=== PATIENT | female | born 1995 | race Caucasian/White ===

== ENCOUNTER 2020-03-31 01:24 | Emergency (ER) | payer OTHER, MEDICAID ==
[~2020-03-31] VITALS: Ht 162.6 cm; Wt 70.7 kg
--- NOTE | 2020-03-31 01:35 | NUR ---
PT REPORTS MIGRAINE ARGUETA X2 WEEKS, SEEN AT URGENT 1 WEEK AGO TREATED FOR ALLERGIES. PT REPORTS CLARITIN HAS NOT HELPED. PT REPORTS SHE "PASSED OUT" IN THE BATHROOM LAST NIGHT.
[2020-03-31] MEDS ORDERED: ONDANSETRON ODT 4 MG ONE (01:51)
[2020-03-31] MEDS ORDERED: KETOROLAC 30 MG/1 ML ONE (01:52)
[2020-03-31] MEDS ORDERED: DIPHENHYDRAMINE 25 MG CAPSULE ONE (01:52)
[2020-03-31] MEDS ORDERED: ONDANSETRON ODT 4 MG PO ONE (02:00)
[2020-03-31] MEDS ORDERED: KETOROLAC 30 MG/1 ML IM ONE (02:00)
[2020-03-31] MEDS ORDERED: DIPHENHYDRAMINE 25 MG CAPSULE PO ONE (02:00)
--- NOTE | 2020-03-31 02:00 | NUR ---
GARAGE HAND AT BEDSIDE.
[2020-03-31 02:14] LABS: BASOPHILS # (AUTO) 0.04 x10^3/uL (0-0.1); BASOPHILS % (AUTO) 1 % (0-1); EOSINOPHILS # (AUTO) 0.07 x10^3/uL (0-0.4); EOSINOPHILS % (AUTO) 1 % (1-7); LYMPHOCYTES # (AUTO) 2.88 x10^3/uL (1-3.4); LYMPHOCYTES % (AUTO) 38 % (22-44); MD NO; MEAN CORPUSCULAR HEMOGLOBIN 30.8 pg (27.0-34.8); MEAN CORPUSCULAR HGB CONC 32.4 g/dL (32.4-35.8); MEAN CORPUSCULAR VOLUME 95.2 fL (80-100); MEAN PLATELET VOLUME 7.8 fL (7.4-10.4); MONOCYTES # (AUTO) 0.37 x10^3/uL (0.2-0.8); MONOCYTES % (AUTO) 5 % (2-9); NEUTROPHILS # (AUTO) 4.29 x10^3/uL (1.8-6.8); NEUTROPHILS % (AUTO) 56 % (42-75); PLATELET COUNT 254 x10^3/uL (130-400); RED BLOOD COUNT 4.14 x10^6/uL (3.82-5.3); RED CELL DISTRIBUTION WIDTH 12.9 % (9.6-15.2)
[2020-03-31 02:21] LABS: ALBUMIN 3.7 g/dL (3.4-5.0); ANION GAP 7 mmol/L (5-15); CALCIUM 8.6 mg/dL (8.5-10.1); CHLORIDE 107 mmol/L (98-107)
--- NOTE | 2020-03-31 02:43 | NUR ---
PT REPORTS ARGUETA IS 05/06.
[2020-03-31 02:44] VITALS: BP 100/68
== END 2020-03-31 03:20 | disposition home or self-care (01) ==
LOC: ED 01:52
DX: R51 Headache (principal); J45.909 Unspecified asthma, uncomplicated; R00.0 Tachycardia, unspecified
CPT/HCPCS: 36415; 80048; 82040; 84703; 85025; 93005; 96372; 99284; J1885; Q0162; Q0163

== ENCOUNTER 2020-04-25 00:09 | Emergency (ER) | payer OTHER, MEDICAID ==
[~2020-04-25] VITALS: Ht 162.6 cm; Wt 70.5 kg
--- NOTE | 2020-04-25 00:18 | NUR ---
THIS TECH DID EKG
[2020-04-25] MEDS ORDERED: SODIUM CHLORIDE 0.9% 1,000ML IVBOLUS ONE (00:30)
[2020-04-25] MEDS ORDERED: SODIUM CHLORIDE FLUSH 10ML SYR IVF ONE (00:30)
[2020-04-25 00:42] LABS: BASOPHILS # (AUTO) 0.04 x10^3/uL (0-0.1); BASOPHILS % (AUTO) 0 % (0-1); EOSINOPHILS # (AUTO) 0.16 x10^3/uL (0-0.4); EOSINOPHILS % (AUTO) 1 % (1-7); LYMPHOCYTES # (AUTO) 2.34 x10^3/uL (1-3.4); LYMPHOCYTES % (AUTO) 15 % (22-44); MD NO; MEAN CORPUSCULAR HEMOGLOBIN 31.7 pg (27.0-34.8); MEAN CORPUSCULAR HGB CONC 32.9 g/dL (32.4-35.8); MEAN CORPUSCULAR VOLUME 96.4 fL (80-100); MEAN PLATELET VOLUME 7.7 fL (7.4-10.4); MONOCYTES # (AUTO) 0.68 x10^3/uL (0.2-0.8); MONOCYTES % (AUTO) 4 % (2-9); NEUTROPHILS % (AUTO) 79 % (42-75); PLATELET COUNT 352 x10^3/uL (130-400)
--- NOTE | 2020-04-25 00:43 | NUR ---
PT TO CT
[2020-04-25] MEDS ORDERED: ONDANSETRON 2MG/ML, 2ML ONE ×2 (00:53→01:33)
[2020-04-25 00:58] LABS: ALANINE AMINOTRANSFERASE 271 U/L (12-78); ANION GAP 11 mmol/L (5-15); CALCIUM 8.3 mg/dL (8.5-10.1); CHLORIDE 107 mmol/L (98-107); CREATININE 1.11 mg/dL (0.55-1.02)
[2020-04-25] MEDS ORDERED: ONDANSETRON 2MG/ML, 2ML IVPush ONE ×2 (01:00→01:30)
[2020-04-25 01:03] LABS: ALKALINE PHOSPHATASE 87 U/L (45-117); BILIRUBIN,TOTAL 0.4 mg/dL (0.2-1.0); TOTAL PROTEIN 7.7 g/dL (6.4-8.2)
--- NOTE | 2020-04-25 01:37 | NUR ---
Christian RN: Assisted pt to bedside commode and UA obtained and sent. Pt became very nauseous after transfering back to [facility]. Order for repeat Zofran received and pt medicated per MAR. Pt and aware of POC--awaiting CTA. Report to zulma Dye RN.
--- NOTE | 2020-04-25 01:39 | NUR ---
PT TO CT.
[2020-04-25 01:48] LABS: MICROSCOPIC INDICATED
[2020-04-25 01:52] LABS: AMPHETAMINE SCREEN, URINE Negative (Negative); BARBITURATE SCREEN, URINE Negative (Negative); BENZODIAZEPINE SCREEN, URINE Negative (Negative); CANNABINOID SCREEN, URINE Negative (Negative); COCAINE SCREEN, URINE Negative (Negative); METHADONE SCREEN, URINE Negative (Negative); OPIATE SCREEN, URINE Negative (Negative)
[2020-04-25] MEDS ORDERED: PLEASE ENTER HEIGHT AND WEIGHT MC SCH (02:00)
--- NOTE | 2020-04-25 02:22 | NUR ---
PT RESTING WITH AT BEDSIDE. HR NOW 80S. DRINKING WATER WITHOUT DIFFICULTY.
--- NOTE | 2020-04-25 02:23 | NUR ---
PROVIDER TO BEDSIDE TO DISCUSS PLAN OF CARE.
[2020-04-25] MEDS ORDERED: PROMETHAZINE 25 MG/ML, 1ML ONE (02:29)
[2020-04-25] MEDS ORDERED: PROMETHAZINE 25 MG/ML, 1ML IM ONE (02:30)
[2020-04-25 03:33] VITALS: BP 99/66
[2020-04-25] MEDS ORDERED: OMNIPAQUE 350 MG/ML, 100ML BOTTLE ONE (06:49)
== END 2020-04-25 03:35 | disposition home or self-care (01) ==
LOC: ED 02:30
DX: R56.9 Unspecified convulsions (principal); R51 Headache; R07.9 Chest pain, unspecified; R94.31 Abnormal electrocardiogram [ECG] [EKG]; F17.200 Nicotine dependence, unspecified, uncomplicated
CPT/HCPCS: 36415; 70450; 71045; 71275; 80053; 80307; 81001; 84703; 85025; 85379; 87086; 93005; 96361; 96372; 96374; 96376; 99285; J2405; J2550; J7030; Q9967

== ENCOUNTER 2020-04-25 21:42 | Emergency (ER) | payer OTHER, MEDICAID ==
[~2020-04-25] VITALS: Ht 162.6 cm; Wt 72.3 kg
--- NOTE | 2020-04-25 21:53 | NUR ---
BS 102 IN [facility].
--- NOTE | 2020-04-25 22:04 | NUR ---
PT REPORTS ARGUETA SINCE THIS MORNING AND NAUSEA. PT WAS HERE YESTERDAY FOR POSSIBLE SEIZURE. ERP AT BEDSIDE.
[2020-04-25] MEDS ORDERED: PROCHLORPERAZINE 5 MG/ML, 2ML ONE (22:20)
[2020-04-25] MEDS ORDERED: DIPHENHYDRAMINE 50 MG/ML, 1ML ONE (22:20)
[2020-04-25] MEDS ORDERED: KETOROLAC 30 MG/1 ML ONE (22:20)
[2020-04-25] MEDS ORDERED: PROCHLORPERAZINE 5 MG/ML, 2ML IVPush ONE (22:30)
[2020-04-25] MEDS ORDERED: SODIUM CHLORIDE 0.9% 1,000ML IVBOLUS ONE (22:30)
[2020-04-25] MEDS ORDERED: SODIUM CHLORIDE FLUSH 10ML SYR IVF ONE (22:30)
[2020-04-25] MEDS ORDERED: DIPHENHYDRAMINE 50 MG/ML, 1ML IVPush ONE (22:30)
[2020-04-25] MEDS ORDERED: KETOROLAC 30 MG/1 ML IVPush ONE (22:30)
--- NOTE | 2020-04-25 22:30 | NUR ---
PT MEDICATED PER MAR, SAFETY FALL PRECAUTIONS IN PLACE.
[2020-04-25 22:48] LABS: BASOPHILS # (AUTO) 0.04 x10^3/uL (0-0.1); BASOPHILS % (AUTO) 1 % (0-1); EOSINOPHILS # (AUTO) 0.09 x10^3/uL (0-0.4); EOSINOPHILS % (AUTO) 1 % (1-7); LYMPHOCYTES # (AUTO) 3.34 x10^3/uL (1-3.4); LYMPHOCYTES % (AUTO) 38 % (22-44); MD NO; MEAN CORPUSCULAR HEMOGLOBIN 31.9 pg (27.0-34.8); MEAN CORPUSCULAR HGB CONC 33.5 g/dL (32.4-35.8); MEAN CORPUSCULAR VOLUME 95.3 fL (80-100); MEAN PLATELET VOLUME 7.6 fL (7.4-10.4); MONOCYTES % (AUTO) 6 % (2-9); NEUTROPHILS # (AUTO) 4.73 x10^3/uL (1.8-6.8); NEUTROPHILS % (AUTO) 54 % (42-75); PLATELET COUNT 250 x10^3/uL (130-400); RED BLOOD COUNT 3.97 x10^6/uL (3.82-5.3); RED CELL DISTRIBUTION WIDTH 12.9 % (9.6-15.2)
[2020-04-25 22:50] LABS: ALANINE AMINOTRANSFERASE 162 U/L (12-78); ALBUMIN 3.9 g/dL (3.4-5.0); ANION GAP 5 mmol/L (5-15); CALCIUM 8.5 mg/dL (8.5-10.1); CHLORIDE 106 mmol/L (98-107); CREATININE 0.88 mg/dL (0.55-1.02)
[2020-04-25 22:53] LABS: ALKALINE PHOSPHATASE 69 U/L (45-117); BILIRUBIN,TOTAL 0.3 mg/dL (0.2-1.0); TOTAL PROTEIN 7.4 g/dL (6.4-8.2)
[2020-04-25 23:38] VITALS: BP 101/61
== END 2020-04-25 23:59 | disposition home or self-care (01) ==
LOC: ED 23:55
DX: G43.009 Migraine without aura, not intractable, without status migrainosus (principal); H53.149 Visual discomfort, unspecified; J45.909 Unspecified asthma, uncomplicated
CPT/HCPCS: 36415; 80053; 82962; 85025; 96374; 96375; 99284; J0780; J1200; J1885; J7030

== ENCOUNTER → 2020-05-13 | Outpatient (CLI) | payer OTHER, MEDICAID ==
[2020-05-13 09:43] LABS: ALBUMIN 3.7 g/dL (3.4-5.0); ANION GAP 4 mmol/L (5-15); CHLORIDE 107 mmol/L (98-107); GAMMA GLUTAMYL TRANSPEPTIDASE 28 U/L (5-55); TRIGLYCERIDES 53 mg/dL (50-200); VLDL CHOLESTEROL 11 mg/dL (0-25)
[2020-05-13 10:01] LABS: BASOPHILS # (AUTO) 0.04 x10^3/uL (0-0.1); BASOPHILS % (AUTO) 1 % (0-1); EOSINOPHILS # (AUTO) 0.15 x10^3/uL (0-0.4); EOSINOPHILS % (AUTO) 2 % (1-7); LYMPHOCYTES # (AUTO) 2.62 x10^3/uL (1-3.4); LYMPHOCYTES % (AUTO) 39 % (22-44); MD NO; MEAN CORPUSCULAR HGB CONC 33.7 g/dL (32.4-35.8); MEAN CORPUSCULAR VOLUME 95.1 fL (80-100); MEAN PLATELET VOLUME 7.5 fL (7.4-10.4); MONOCYTES # (AUTO) 0.39 x10^3/uL (0.2-0.8); MONOCYTES % (AUTO) 6 % (2-9); NEUTROPHILS # (AUTO) 3.57 x10^3/uL (1.8-6.8); NEUTROPHILS % (AUTO) 53 % (42-75); PLATELET COUNT 281 x10^3/uL (130-400); RED BLOOD COUNT 4.36 x10^6/uL (3.82-5.3); RED CELL DISTRIBUTION WIDTH 12.8 % (9.6-15.2)
[2020-05-13 10:09] LABS: % IRON SATURATION 48 % (20-55); ALANINE AMINOTRANSFERASE 22 U/L (12-78); ALKALINE PHOSPHATASE 59 U/L (45-117); BILIRUBIN,TOTAL 0.7 mg/dL (0.2-1.0); CHOL/HDL RATIO 2.5; CHOLESTEROL, TOTAL 136 mg/dL (140-239); CREATININE 0.77 mg/dL (0.55-1.02); FOLATE LEVEL 18.7 ng/mL (3.1-17.5); FREE T4 (FREE THYROXINE) 1.15 ng/dL (0.76-1.46); HDL CHOL % 40 % (28-40); HDL CHOLESTEROL (DIRECT) 55 mg/dL (40-60); IRON LEVEL 144 mcg/dL (50-170); LDL CHOLESTEROL,CALCULATED 70 mg/dL (54-169); LDL/HDL RATIO 1.3 (0.5-3.0); TOTAL IRON BINDING CAPACITY 298 mcg/dL (250-450); TOTAL PROTEIN 7.5 g/dL (6.4-8.2)
== END | disposition home or self-care (01) ==
LOC: LAB 09:14
PROVIDERS: ATTEND Nurse Practitioner Family
DX: R53.83 Other fatigue (principal); R73.9 Hyperglycemia, unspecified; R74.8 Abnormal levels of other serum enzymes; Z98.84 Bariatric surgery status
CPT/HCPCS: 36415; 80053; 80061; 80074; 82306; 82607; 82728; 82746; 82977; 83036; 83540; 83550; 84439; 84443; 85025

== ENCOUNTER 2021-06-24 10:10 | Emergency (ER) | payer OTHER, MEDICAID ==
[~2021-06-24] VITALS: Ht 162.6 cm; Wt 58.0 kg
--- NOTE | 2021-06-24 10:43 | NUR ---
PT WC'D TO ROOM 26 W/ C/O WEAKNESS AND NOT FEELING WELL. PT STATES SHE HAD A DENTAL ABSCESS W/ INCISION AND DRAINAGE 3 DAYS AGO AND WAS TOLD BY HER DENTIST IF SHE FELT WORSE TO COME TO ED AT 2 DAYS. PT WAITED FOR 3 DAYS. PT STATES SHE HAS NOT HAD AN APPETITE AND DOES NOT FEEL WELL. PT RESTING ON GURNEY. NADN. MONITORS APPLIED. VSS. WARM BLANKET PROVIDED PT TEMP IS 99.0 FAMILY AT BEDSIDE. CALL LIGHT IN REACH.
[2021-06-24] MEDS ORDERED: KETOROLAC 30 MG/1 ML IM ONE (11:30)
[2021-06-24] MEDS ORDERED: KETOROLAC 30 MG/1 ML ONE (11:33)
[2021-06-24 11:34] VITALS: BP 116/47
--- NOTE | 2021-06-24 11:35 | NUR ---
PT RESTING ON GURNEY. NADN. [facility].
[2021-06-24 11:46] LABS: BASOPHILS % (AUTO) 1 % (0-1); EOSINOPHILS % (AUTO) 0 % (1-7); LYMPHOCYTES % (AUTO) 18 % (22-44); MEAN CORPUSCULAR HEMOGLOBIN 31.6 pg (27.0-34.8); MEAN CORPUSCULAR HGB CONC 34.7 g/dL (32.4-35.8); MEAN PLATELET VOLUME 7.3 fL (7.4-10.4); MONOCYTES % (AUTO) 6 % (2-9); NEUTROPHILS % (AUTO) 75 % (42-75); PLATELET COUNT 233 x10^3/uL (130-400); RED CELL DISTRIBUTION WIDTH 12.3 % (9.6-15.2)
[2021-06-24 11:51] LABS: MICROSCOPIC NOT IND
[2021-06-24 11:58] LABS: ALBUMIN 3.7 g/dL (3.4-5.0); ANION GAP 3 mmol/L (5-15); CALCIUM 8.9 mg/dL (8.5-10.1); CHLORIDE 108 mmol/L (98-107); CREATININE 0.75 mg/dL (0.55-1.02)
--- NOTE | 2021-06-24 12:19 | NUR ---
PT CHART REVIEWED AND PLACED FOR RECHECK.
--- NOTE | 2021-06-24 12:42 | NUR ---
ASSIST RN: D/C INSTRUCTIONS, MEDS & F/U APPT RV'WD WITH PT, SHE VERBALIZES UNDERSTANDING. RX GIVEN X1. PT STABLE ON DISCHARGE. AMBULATED OUT OF ED WITH SIGNIFICANT OTHER WITHOUT DIFFICULTY.
== END 2021-06-24 12:43 | disposition home or self-care (01) ==
LOC: ED 11:28
DX: J01.10 Acute frontal sinusitis, unspecified (principal); Z20.822 Contact with and (suspected) exposure to COVID-19; B34.9 Viral infection, unspecified; J45.909 Unspecified asthma, uncomplicated; F17.200 Nicotine dependence, unspecified, uncomplicated
CPT/HCPCS: 36415; 71045; 80048; 81003; 82040; 84703; 85025; 96372; 99284; J1885; U0003; U0005